=== PATIENT | female | born 1980 | race Asian ===

== ENCOUNTER 2019-06-05 09:14 | Day surgery (SDC) | payer BC ==
[~2019-06-05] VITALS: Ht 152.4 cm; Wt 53.1 kg
[~2019-06-05 09:14] MED LIST: CEFAZOLIN SOD 1 GM in D5W 50 ML IV ONE
[2019-06-05] MEDS ORDERED: MIDAZOLAM HCL 5 MG/5 ML VIAL IVP ONE (13:00)
[2019-06-05] MEDS ORDERED: fentaNYL CITRATE/PF 100 MCG/2 ML AMP IVP ONE (13:00)
[2019-06-05] MEDS ORDERED: SEVOFLURANE 15 MIN GAS INH ONE (13:00)
[2019-06-05] MEDS ORDERED: NS IRRIG SOLN 1000 ML IR ONE (13:00)
[2019-06-05] MEDS ORDERED: NS 1000 ML IV.SOLN IV ONE (13:00)
[2019-06-05] MEDS ORDERED: PROPOFOL 200MG/ 20ML VIAL (DIPRIVAN) IV ONE (13:00)
[2019-06-05] MEDS ORDERED: ONDANSETRON HCL 4 MG/2 ML VIAL IVP ONE (13:00)
[2019-06-05] MEDS ORDERED: LR 1,000 ML IV.SOLN IV ONE (13:00)
[2019-06-05] MEDS ORDERED: HYDROcodone/ACETAMIN 5-325 MG TAB (NORCO/ VICODIN) PO PRN (13:30)
[2019-06-05] MEDS ORDERED: ONDANSETRON HCL 4 MG/2 ML VIAL IVP PRN (13:30)
[2019-06-05] MEDS ORDERED: LR 1,000 ML IV SCH (13:31)
[2019-06-05] MEDS ORDERED: METOCLOPRAMIDE HCL 10 MG/2 ML VIAL IVP PRN (13:45)
[2019-06-05] MEDS ORDERED: MORPHINE 4 MG/ML INJ. SYRINGE IVP PRN ×3 (13:45)
[2019-06-05 15:01] VITALS: BP_SYST 120
== END 2019-06-05 16:00 | disposition home or self-care (01) ==
LOC: SDS 09:14 → SMU 09:15 → SDS 16:00
PROVIDERS: ATTEND Specialist
DX: N93.8 Other specified abnormal uterine and vaginal bleeding (principal); N85.2 Hypertrophy of uterus; Z79.899 Other long term (current) drug therapy
CPT/HCPCS: 58558; 88305; J0690; J2250; J2405; J2704; J3010; J7030; J7060; J7120